=== PATIENT | female | born 1995 | race Caucasian/White ===

== ENCOUNTER 2020-09-21 17:18 | Emergency (ER) | payer OTHER ==
[~2020-09-21] VITALS: Ht 157.5 cm; Wt 68.0 kg
[2020-09-21] MEDS ORDERED: OLANZAPINE5 M1 PO (17:24)
[2020-09-21] MEDS ORDERED: VENLAFAXINE HC150 MG PO (17:25)
[2020-09-21] MEDS ORDERED: IRON325 M1 PO (17:25)
[2020-09-21 19:43] LABS: URINE BILIRUBIN NEGATIVE (Negative); URINE BLOOD NEGATIVE (Negative); URINE CLARITY CLEAR; URINE COLOR YELLOW; URINE GLUCOSE-RANDOM NEGATIVE (Negative); URINE KETONES NEGATIVE (Negative); URINE LEUKOCYTES-REFLEX NEGATIVE (Negative); URINE NITRITE-REFLEX NEGATIVE (Negative); URINE PROTEIN NEGATIVE (Negative); URINE SPECIFIC GRAVITY >= 1.030 (1.005-1.030)
[2020-09-21 20:47] LABS: HEMATOCRIT 36.9 % (37.0-47.0); HEMOGLOBIN 11.9 gm/dL (12.0-15.0); MCH 21.5 pg (26.0-34.0); MCHC 32.2 g/dL (28.0-37.0); MCV 66.8 fL (80.0-100.0); MPV 6.9 fl. (7.2-11.1); NUCLEATED RBCS 0 /100WBC; PLATELET COUNT* 248 thou/uL (150-400); RBC 5.52 mil/uL (4.20-5.00); RDW-CV 14.8 % (10.5-14.5)
[2020-09-21 20:50] LABS: CREATININE 0.7 mg/dL (0.6-1.3); POTASSIUM 5.4 mmol/L (3.5-5.1)
[2020-09-21] MEDS ORDERED: ZOFRAN ODT4 MG PO (21:08)
[2020-09-21 21:25] LABS: ABSOLUTE LYMPHOCYTES 1.5 thou/uL (0.8-5.3); ABSOLUTE MONOCYTES 0.8 thou/uL (0.0-1.2); ABSOLUTE NEUTROPHILS 8.7 thou/uL (1.6-8.1)
[2020-09-21 21:26] LABS: PLATELET ESTIMATE ADEQUATE
[2020-09-21 21:27] LABS: ANISOCYTOSIS Occasional; HYPOCHROMASIA 2+; MICROCYTES 3+
[2020-09-21 22:03] VITALS: BP 120/85
== END 2020-09-21 22:05 | disposition home or self-care (01) ==
LOC: M.ERS 17:18
PROVIDERS: Emergency Medicine
DX: R11.2 Nausea with vomiting, unspecified (principal); R51.9 Headache, unspecified; Z86.2 Personal history of diseases of the blood and blood-forming organs and certain disorders involving the immune mechanism

== ENCOUNTER 2020-10-18 21:14 | Emergency (ER) | payer OTHER ==
[~2020-10-18] VITALS: Ht 160 cm; Wt 68.0 kg
[~2020-10-18 21:14] MED LIST: IRON325 M1 PO; OLANZAPINE5 M1 PO; VENLAFAXINE HC150 MG PO; ZOFRAN ODT4 MG PO
[2020-10-18 22:33] VITALS: BP 138/88
== END 2020-10-18 22:34 | disposition home or self-care (01) ==
LOC: M.ERS 21:14
DX: Z20.822 Contact with and (suspected) exposure to COVID-19 (principal); Z79.899 Other long term (current) drug therapy; Z91.040 Latex allergy status

== ENCOUNTER 2020-10-28 15:49 | Emergency (ER) | payer OTHER ==
[~2020-10-28] VITALS: Ht 157.5 cm; Wt 68.0 kg
[2020-10-28 16:33] LABS: ABSOLUTE LYMPHOCYTES 1.3 thou/uL (0.8-5.3); ABSOLUTE MONOCYTES 0.5 thou/uL (0.0-1.2); ABSOLUTE NEUTROPHILS 7.9 thou/uL (1.6-8.1); BASOPHILS 0.3 %; EOSINOPHILS 0.4 %; HEMATOCRIT 37.1 % (37.0-47.0); HEMOGLOBIN 11.5 gm/dL (12.0-15.0); MCH 20.5 pg (26.0-34.0); MCHC 31.2 g/dL (28.0-37.0); MCV 65.8 fL (80.0-100.0); MONOCYTES 5.4 %; MPV 6.8 fl. (7.2-11.1); NUCLEATED RBCS 0 /100WBC; PLATELET COUNT* 239 thou/uL (150-400); POLYS 80.9 %; RBC 5.63 mil/uL (4.20-5.00); WBC 9.8 thou/uL (4.0-11.0)
[2020-10-28 16:40] LABS: CREATININE 0.9 mg/dL (0.6-1.3)
[2020-10-28 16:47] LABS: ALBUMIN 4.1 g/dL (3.4-5.0); TOTAL BILIRUBIN 0.9 mg/dL (<0.1-1.0); TOTAL PROTEIN 7.8 g/dL (6.4-8.2)
[2020-10-28 16:48] LABS: PLATELET ESTIMATE ADEQUATE
[2020-10-28 16:49] LABS: ANISOCYTOSIS 1+; MICROCYTES 1+
[2020-10-28 16:57] LABS: SALICYLATE < 2.8 mg/dL (2.8-20.0)
[2020-10-28 16:58] LABS: ACETAMINOPHEN < 2 ug/mL (10-30); ALCOHOL < 10 mg/dL (<10)
[2020-10-28 17:03] LABS: URINE BILIRUBIN NEGATIVE (Negative); URINE BLOOD 3+ (Negative); URINE COLOR YELLOW; URINE GLUCOSE-RANDOM NEGATIVE (Negative); URINE KETONES NEGATIVE (Negative); URINE LEUKOCYTES-REFLEX TRACE (Negative); URINE NITRITE-REFLEX NEGATIVE (Negative); URINE PROTEIN NEGATIVE (Negative); URINE SPECIFIC GRAVITY >= 1.030 (1.005-1.030); URINE UROBILINOGEN 0.2 E.U./dl (0.2-1.0)
[2020-10-28 17:04] LABS: URINE CLARITY HAZY
[2020-10-28 17:10] LABS: SQUAMOUS >10 Many /LPF (0-3)
[2020-10-28 17:11] LABS: BACTERIA-REFLEX None Seen /HPF (None Seen); CASTS None Seen /LPF (None Seen); MUCUS 0-3 Light strn/LPF (None Seen); URINE RBC 3-10 Few /HPF (0-2); URINE WBC-REFLEX 0-5 Rare /HPF (0-5)
[2020-10-28 17:12] LABS: AMP/METHAMP Negative (Negative); BARBITURATES Negative (Negative); BENZODIAZEPINES Negative (Negative); COCAINE Negative (Negative); CRYSTALS None Seen /LPF (None Seen); METHADONE Negative (Negative); OPIATES Negative (Negative); PCP Negative (Negative); THC Negative (Negative)
[2020-10-28 18:43] VITALS: BP 122/80
== END 2020-10-28 19:13 | disposition home or self-care (01) ==
LOC: M.ERS 15:49
PROVIDERS: Family Medicine
DX: R42 Dizziness and giddiness (principal); Z20.822 Contact with and (suspected) exposure to COVID-19; T43.215A Adverse effect of selective serotonin and norepinephrine reuptake inhibitors, initial encounter; R11.0 Nausea; R19.7 Diarrhea, unspecified; Z79.899 Other long term (current) drug therapy; Z91.048 Other nonmedicinal substance allergy status; Y92.89 Other specified places as the place of occurrence of the external cause

== ENCOUNTER 2021-03-02 12:55 | Emergency (ER) | payer OTHER ==
[~2021-03-02] VITALS: Ht 157.5 cm; Wt 72.1 kg
[2021-03-02 15:40] VITALS: BP 120/81
== END 2021-03-02 15:41 | disposition home or self-care (01) ==
LOC: M.ERS 12:55
DX: R05.9 Cough, unspecified (principal); Z53.21 Procedure and treatment not carried out due to patient leaving prior to being seen by health care provider